=== PATIENT | male | born 1955 | race Hispanic/Latino ===

== ENCOUNTER 2017-11-30 00:08 | Emergency (ER) | payer OTHER ==
[2017-11-30 00:08] VITALS: BMI 33.0
[2017-11-30 00:59] VITALS: BP 158/88; PULSE 89; RESP 16; TEMP 98.2; O2SAT 98
[2017-11-30] MEDS ORDERED: Sodium Chloride 0.9% 1,000 ML IV STA (01:11)
[2017-11-30] MEDS ORDERED: Insulin Regular 100 units/ml SC STA (01:11)
[2017-11-30] MEDS ORDERED: Insulin Regular 100 units/ml ONE (02:03)
[2017-11-30 02:20] LABS: BASO % 0.2 % (0.0-2.0); EOS # 0.2 K/uL (0.0-0.7); EOS % 2.4 % (0.0-4.0); HEMOGLOBIN 13.3 g/dL (12.0-18.0); LYMPH # 1.8 K/uL (1.0-4.3); LYMPH % 23.3 % (20.0-40.0); MEAN CELL VOLUME 91.3 fl (80.0-94.0); MEAN CORPUSCULAR HEMOGLOBIN 30.5 pg (27.0-31.0); MEAN CORPUSCULAR HGB CONC 33.4 g/dL (33.0-37.0); MONO # 0.7 K/uL (0.0-0.8); MONO % 8.8 % (0.0-10.0); NEUT % 65.3 % (50.0-75.0); NRBC % 0.3 % (0.0-0.0); RBC 4.35 Mil/uL (4.40-5.90); RED CELL DISTRIBUTION WIDTH 14.6 % (11.5-14.5); WHITE BLOOD COUNT 7.6 K/uL (4.8-10.8)
--- NOTE | 2017-11-30 02:23 | ED PDOC ---
HPI: General Adult Time Seen by Provider: 11/30/17 00:55 Chief Complaint (Nursing): Lower Extremity Problem/Injury History Per: Patient Additional Complaint(s): Pt. states for the past 2 days he's had increased urinary frequency without dysuria. States he is currently homeless and reports while in the skilled nursing he was waiting to go to the bathroom which was occupied and while waiting for the bathroom he accidentally urinated himself. Pt. states he is a non-insulin diabetic but has not had his metformin in several months as he has been unable to f/u with a PMD. Denies abd pain, leg pain (contrary to triage note), fever, N /V/D, hx of DKA, SOB, chest pain, back pain. Past Medical History Reviewed: Historical Data, Nursing Documentation, Vital Signs Vital Signs: Last Vital Signs Temp 98.2 F 11/30/17 00:57 Pulse 89 11/30/17 00:57 Resp 16 11/30/17 00:57 BP 158/88 H 11/30/17 00:57 Pulse Ox 98 11/30/17 04:43 - Medical History PMH: Anxiety, Depression, Diabetes, Hypercholesterolemia, Rheumatoid Arthritis, Seizures Denies: HIV (unable to assess pt. intubated) - Family History Family History: States: No Known Family Hx - Home Medications Home Medications: Ambulatory Orders Medication Instructions Recorded Acetaminophen [Tylenol 325mg tab] 650 mg PO Q6 PRN tab 10/16/17 Acetaminophen [Tylenol 650 mg Supp] 650 mg [place] Q4 PRN sup 10/16/17 Divalproex [Depakote DR(*BID*)] 500 mg PO BID #60 tcp 10/16/17 GlipiZIDE SR [Glucotrol XL] 5 mg PO BRK #30 tab 10/16/17 Losartan [Cozaar] 50 mg PO DAILY #30 tab 10/16/17 Tamsulosin [Flomax] 0.4 mg PO DAILY #30 cap 10/16/17 Metformin HCl [Fortamet] 1,000 mg PO QAM #14 tab.er.24 10/19/17 MetFORMIN [glucoPHAGE] 1,000 mg PO DAILY #14 tab 11/30/17 - Allergies Allergies/Adverse Reactions: Allergies Allergy/AdvReac Type Severity Reaction Status Date / Time No Known Allergies Allergy Verified 10/05/17 06:34 Review of Systems ROS Statement: Except As Marked, All Systems Reviewed And Found Negative Genitourinary Male: Positive for: Frequency Physical Exam - Physical Exam Appears: Positive for: Well, Non-toxic, No Acute Distress Skin: Positive for: Normal Color, Warm. Negative for: Rash Eye Exam: Positive for: Normal appearance Neck: Positive for: Normal, Painless ROM Cardiovascular/Chest: Positive for: Regular Rate, Rhythm Respiratory: Positive for: Normal Breath Sounds. Negative for: Accessory Muscle Use, Respiratory Distress Gastrointestinal/Abdominal: Positive for: Normal Exam, Soft. Negative for: Tenderness Back: Positive for: Normal Inspection. Negative for: L CVA Tenderness, R CVA Tenderness Extremity: Positive for: Normal ROM. Negative for: Calf Tenderness (b/l) Neurologic/Psych: Positive for: Alert, Oriented. Negative for: Aphasia, Facial Droop - Laboratory Results Result Diagrams: 11/30/17 02:10 11/30/17 02:10 - ECG O2 Sat by Pulse Oximetry: 98 - Progress ED Course And Treament: Labs ordered. FSBS: 452 Insulin 6mg SC, IV NS bolus x 1 ordered. 0249 Repeat FSBS: 312 K: 5.7 - slightly hemolyzed as per lab 0441 FSBS: 244 UA showed no ketones Normal anion gap. On re-evaluation, pt. sleeping comfortably and easily arousable. No distress. Disposition - Clinical Impression Clinical Impression: Hyperglycemia - Patient ED Disposition Is Patient to be Admitted: No - Disposition Referrals: [facility] [Outside] Disposition: Routine/Home Disposition Time: 04:46 Condition: IMPROVED Additional Instructions: Follow up with [facility] for further evaluation. Return to ED if symptoms worsen. Prescriptions: MetFORMIN [glucoPHAGE] 1,000 mg PO DAILY #14 tab Instructions: Hyperglycemia, Adult (DC) Forms: [employer] (Estonian) Print Language: SAUDI ARABIAN
[2017-11-30 02:46] LABS: ALB/GLOB RATIO 0.9 (1.0-2.1); ALBUMIN 3.4 g/dL (3.5-5.0); ALT/SGPT 74 U/L (21-72); AST/SGOT 39 U/L (17-59); BLOOD UREA NITROGEN 26 mg/dl (9-20); CALCIUM 8.8 mg/dL (8.4-10.2); GFR AFRICAN-AMERICAN > 60; GFR NON-AFRICAN AMERICAN > 60
[2017-11-30 03:46] LABS: URINE BILIRUBIN NEGATIVE (NEGATIVE); URINE BLOOD SMALL (NEGATIVE); URINE CLARITY CLEAR (Clear); URINE COLOR STRAW (YELLOW); URINE GLUCOSE (UA) >=500 mg/dL (Normal); URINE LEUKOCYTE ESTERASE NEG Leu/uL (Negative); URINE PROTEIN 100 mg/dL (NEGATIVE); URINE UROBILINOGEN 0.2-1.0 mg/dL (0.2-1.0)
== END 2017-11-30 05:35 | disposition home or self-care (01) ==
LOC: H.ER 00:08
DX: E11.65 Type 2 diabetes mellitus with hyperglycemia (principal); E78.00 Pure hypercholesterolemia, unspecified; M06.9 Rheumatoid arthritis, unspecified; Z79.84 Long term (current) use of oral hypoglycemic drugs
CPT/HCPCS: 80053; 81003; 82948; 85025; 87086; 96372; 99284; J7040

== ENCOUNTER 2018-01-30 07:36 | Emergency (ER) | payer OTHER ==
[2018-01-30 07:41] VITALS: BMI 31.9
[2018-01-30 07:42] VITALS: RESP 17; O2SAT 97
--- NOTE | 2018-01-30 08:34 | ED PDOC ---
HPI: Male Pain Time Seen by Provider: 01/30/18 07:53 Chief Complaint (Nursing): Male Genitourinary Chief Complaint (Provider): Male Genitourinary History Per: Patient History/Exam Limitations: no limitations Onset/Duration Of Symptoms: Days (x 1 month) Current Symptoms Are (Timing): Still Present Associated Symptoms: Urinary Symptoms Additional Complaint(s): 62 year old male with a history of prostate cancer and diabetes presents to the ED via EMS with urinary and fecal incontinence for the last month. He admits falling 3 years ago on ice that caused a back injury but did not have any serious acute findings s/p fall. Patient has been between homeless shelters for the last 3 years. Offers no other medical complaints. PMD: Dr. Milka Mckeon Past Medical History Reviewed: Historical Data, Nursing Documentation, Vital Signs Vital Signs: Last Vital Signs Temp 98.1 F 01/30/18 07:41 Pulse 104 H 01/30/18 07:41 Resp 17 01/30/18 07:41 BP 147/80 01/30/18 07:41 Pulse Ox 97 01/30/18 07:41 - Medical History PMH: Anxiety, Depression, Diabetes, Hypercholesterolemia, Rheumatoid Arthritis, Seizures, Chronic Pain (back) Denies: HIV - Surgical History Surgical History: Appendectomy, Cholecystectomy - Family History Family History: States: Unknown Family Hx - Social History Current smoker - smoking cessation education provided: No Ex-Smoker (has not smoked in the last 12 months): No Drugs: Denies - Home Medications Home Medications: Ambulatory Orders Medication Instructions Recorded Acetaminophen [Tylenol 325mg tab] 650 mg PO Q6 PRN tab 10/16/17 Acetaminophen [Tylenol 650 mg Supp] 650 mg [place] Q4 PRN sup 10/16/17 Divalproex [Depakosindhu DR(*BID*)] 500 mg PO BID #60 tcp 10/16/17 GlipiZIDE SR [Glucotrol XL] 5 mg PO BRK #30 tab 10/16/17 Losartan [Cozaar] 50 mg PO DAILY #30 tab 10/16/17 Tamsulosin [Flomax] 0.4 mg PO DAILY #30 cap 10/16/17 Metformin HCl [Fortamet] 1,000 mg PO QAM #14 tab.er.24 10/19/17 MetFORMIN [glucoPHAGE] 1,000 mg PO DAILY #14 tab 11/30/17 MetFORMIN [glucoPHAGE] 1,000 mg PO DAILY #30 tab 01/30/18 - Allergies Allergies/Adverse Reactions: Allergies Allergy/AdvReac Type Severity Reaction Status Date / Time No Known Allergies Allergy Verified 01/30/18 07:52 Review of Systems ROS Statement: Except As Marked, All Systems Reviewed And Found Negative Genitourinary Male: Positive for: Incontinence (fecal and urinary) Physical Exam - Reviewed Nursing Documentation Reviewed: Yes Vital Signs Reviewed: Yes - Physical Exam Appears: Positive for: Non-toxic, No Acute Distress Head Exam: Positive for: ATRAUMATIC, NORMAL INSPECTION, NORMOCEPHALIC Skin: Positive for: Normal Color, Warm, DRY Eye Exam: Positive for: EOMI, Normal appearance, PERRL Neck: Positive for: Normal, Painless ROM Cardiovascular/Chest: Positive for: Regular Rate, Rhythm. Negative for: Murmur Respiratory: Positive for: Normal Breath Sounds. Negative for: Respiratory Distress Gastrointestinal/Abdominal: Positive for: Normal Exam, Soft. Negative for: Tenderness Extremity: Positive for: Normal ROM. Negative for: Deformity Neurologic/Psych: Positive for: Alert, Oriented (x 3). Negative for: Motor/ Sensory Deficits - Laboratory Results Urine dip results: Negative for: Leukocyte Esterase, Ketones - ECG O2 Sat by Pulse Oximetry: 97 (RA) Pulse Ox Interpretation: Normal Medical Decision Making Medical Decision Making: Time: 08:14 Initial Plan: --Urine dip --Accucheck Time: 08:32 --Glucose level of 302. Scribe Attestation: Documented by Calista Bradley, acting as a scribe for Tabitha Nunez MD Provider Scribe Attestation: All medical record entries made by the Scribe were at my direction and personally dictated by me. I have reviewed the chart and agree that the record accurately reflects my personal performance of the history, physical exam, medical decision making, and the department course for this patient. I have also personally directed, reviewed, and agree with the discharge instructions and disposition. Patient advised that he needs outpatient followup for his chronic complaints. Disposition - Clinical Impression Clinical Impression: Prostate cancer, Diabetes mellitus - Patient ED Disposition Is Patient to be Admitted: No Doctor Will See Patient In The: Office Counseled Patient/Family Regarding: Diagnosis, Need For Followup, Rx Given - Disposition Referrals: [facility] [Outside] [facility] [Outside] [facility] [Outside] Disposition: Routine/Home Disposition Time: 11:15 Condition: STABLE Prescriptions: MetFORMIN [glucoPHAGE] 1,000 mg PO DAILY #30 tab Instructions: Type 2 Diabetes, Prostate Cancer Forms: [facility] (East Timorese) - POA Present On Arrival: None
[2018-01-30 12:36] VITALS: BP 145/75; PULSE 90; TEMP 97.7
== END 2018-01-30 12:35 | disposition home or self-care (01) ==
LOC: H.ER 07:36
DX: C61 Malignant neoplasm of prostate (principal); E11.9 Type 2 diabetes mellitus without complications; Z79.84 Long term (current) use of oral hypoglycemic drugs; E78.00 Pure hypercholesterolemia, unspecified; F32.9 Major depressive disorder, single episode, unspecified; F41.9 Anxiety disorder, unspecified; G89.29 Other chronic pain; M06.9 Rheumatoid arthritis, unspecified; Z87.891 Personal history of nicotine dependence

== ENCOUNTER 2018-02-03 14:51 | Emergency (ER) | payer OTHER ==
[2018-02-03 14:51] VITALS: BMI 31.9
[2018-02-03 15:34] VITALS: RESP 16; TEMP 98.1
--- NOTE | 2018-02-03 16:10 | ED PDOC ---
Lower Extremity Pain/Injury Time Seen by Provider: 02/03/18 15:51 Chief Complaint (Nursing): Lower Extremity Problem/Injury History Per: Patient Onset/Duration Of Symptoms: Days (2) Current Symptoms Are (Timing): Still Present Severity: Moderate Pain Scale Rating Of: 2 Additional Complaint(s): Developed ulcer left ankle from wearing tight shoes x 2 days. No fever. Past Medical History Vital Signs: Last Vital Signs Temp 98.1 F 02/03/18 15:29 Pulse 84 02/03/18 15:29 Resp 16 02/03/18 15:29 BP 142/71 02/03/18 15:29 Pulse Ox 100 02/03/18 15:29 - Medical History PMH: Anxiety, Depression, Diabetes, Hypercholesterolemia, Malignancy (Prostate) , Rheumatoid Arthritis, Seizures, Chronic Pain (back) Denies: HIV - Surgical History Surgical History: Appendectomy, Cholecystectomy - Family History Family History: States: Unknown Family Hx - Home Medications Home Medications: Ambulatory Orders Medication Instructions Recorded Acetaminophen [Tylenol 325mg tab] 650 mg PO Q6 PRN tab 10/16/17 Acetaminophen [Tylenol 650 mg Supp] 650 mg [place] Q4 PRN sup 10/16/17 Divalproex [Depakote DR(*BID*)] 500 mg PO BID #60 tcp 10/16/17 GlipiZIDE SR [Glucotrol XL] 5 mg PO BRK #30 tab 10/16/17 Losartan [Cozaar] 50 mg PO DAILY #30 tab 10/16/17 Tamsulosin [Flomax] 0.4 mg PO DAILY #30 cap 10/16/17 Metformin HCl [Fortamet] 1,000 mg PO QAM #14 tab.er.24 10/19/17 MetFORMIN [glucoPHAGE] 1,000 mg PO DAILY #14 tab 11/30/17 MetFORMIN [glucoPHAGE] 1,000 mg PO DAILY #30 tab 01/30/18 Sulfamethoxazole/Trimethoprim 1 tab PO BID #20 tab 02/03/18 [Bactrim DS 800 mg-160 mg] traMADol [Ultram] 50 mg PO Q8 #10 tab 02/03/18 - Allergies Allergies/Adverse Reactions: Allergies Allergy/AdvReac Type Severity Reaction Status Date / Time No Known Allergies Allergy Verified 02/03/18 15:29 Review of Systems ROS Statement: Except As Marked, All Systems Reviewed And Found Negative Constitutional: Negative for: Fever Skin: Positive for: Other (Ulcer and erythema left medial maleolus) Physical Exam - Reviewed Nursing Documentation Reviewed: Yes Vital Signs Reviewed: Yes - Physical Exam Appears: Positive for: Non-toxic, No Acute Distress Head Exam: Positive for: ATRAUMATIC, NORMAL INSPECTION, NORMOCEPHALIC Skin: Positive for: Normal Color, Warm, DRY Eye Exam: Positive for: EOMI, Normal appearance, PERRL ENT: Positive for: Normal ENT Inspection Neck: Positive for: Normal, Painless ROM Cardiovascular/Chest: Positive for: Regular Rate, Rhythm Respiratory: Positive for: CNT, Normal Breath Sounds Gastrointestinal/Abdominal: Positive for: Normal Exam, Soft Back: Positive for: Normal Inspection Extremity: Positive for: Other (Left ankle medial maleolus, 2 cm ulcer with surrounding erythema ) Neurologic/Psych: Positive for: Alert, Oriented - Laboratory Results Result Diagrams: 02/03/18 16:51 02/03/18 16:51 - ECG O2 Sat by Pulse Oximetry: 100 Medical Decision Making Medical Decision Making: Discussed 24 hr obs with pt for IV antibiotics. WBC nl. Pt afebrile, able to tolearte PO meds. No evidence of osteo on xray. Pt prefers to go home on PO antibiotics and f/u with PMD. Pt instructed to return to ED immediately if he develops fever chills or increase in redness of wound Disposition - Clinical Impression Clinical Impression: Diabetic foot ulcer - Patient ED Disposition Is Patient to be Admitted: No Counseled Patient/Family Regarding: Studies Performed, Diagnosis, Need For Followup, Rx Given - Disposition Referrals: [facility] [Outside] Disposition: Routine/Home Disposition Time: 18:54 Condition: FAIR Prescriptions: Sulfamethoxazole/Trimethoprim [Bactrim DS 800 mg-160 mg] 1 tab PO BID #20 tab traMADol [Ultram] 50 mg PO Q8 #10 tab Instructions: Diabetic Foot Ulcer (DC) Forms: [employer] (Romanian)
[2018-02-03] MEDS ORDERED: Piperacillin/Tazobact 3.375 GM in Sodium Chloride 0.9% 100 ML IVPB STA (16:12)
[2018-02-03 16:57] LABS: BASO % 0.2 % (0.0-2.0); EOS # 0.2 K/uL (0.0-0.7); EOS % 2.7 % (0.0-4.0); HEMOGLOBIN 12.7 g/dL (12.0-18.0); LYMPH # 1.7 K/uL (1.0-4.3); LYMPH % 23.6 % (20.0-40.0); MEAN CELL VOLUME 88.9 fl (80.0-94.0); MEAN CORPUSCULAR HEMOGLOBIN 30.3 pg (27.0-31.0); MEAN PLATELET VOLUME 8.8 fl (7.2-11.7); MONO # 0.8 K/uL (0.0-0.8); MONO % 11.3 % (0.0-10.0); NEUT # 4.5 K/uL (1.8-7.0); NEUT % 62.2 % (50.0-75.0); RBC 4.19 Mil/uL (4.40-5.90); RED CELL DISTRIBUTION WIDTH 14.1 % (11.5-14.5); WHITE BLOOD COUNT 7.2 K/uL (4.8-10.8)
[2018-02-03] MEDS ORDERED: Piperacillin/Tazobact 3.375 gm Inj IVPB ONE (16:59)
[2018-02-03 17:05] LABS: ALBUMIN 3.2 g/dL (3.5-5.0); ALT/SGPT 34 U/L (21-72); AST/SGOT 32 U/L (17-59); BLOOD UREA NITROGEN 33 mg/dl (9-20); CALCIUM 8.4 mg/dL (8.4-10.2); GFR AFRICAN-AMERICAN > 60; GFR NON-AFRICAN AMERICAN > 60
--- NOTE | 2018-02-03 17:18 | CP.PCM.CON ---
History of Present Illness - History of Present Illness History of Present Illness: 62 y/o male with PMHx of DM type II and RA seen in ED for left medial ankle ulcer secondary to tight shoegear. States he has been wearing new walking diabetic shoes for a few days and today he noticed a new wound on the inside of the ankle. Denies noting any pus from the site. States it is somewhat painful to touch. 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 Admits to a history of foot ulcers several years ago. States he tries his best to keep his diabetes under control but that his sugars lately have been in the 200s. Admits to occasional numbness in the toes. Admits to chronic mild but constant lower extremity leg and foot pain, worsened by extensive walking. Denies any tingling or burning. Denies F/C/N/V/CP/SOB. PSH: cholecystectomy, appendectomy All: NKDA Soc: Resides at [facility]. Social EtOH; denies cigarette or illicit drug use Review of Systems - Review of Systems All systems: reviewed and no additional remarkable complaints except (per HPI) Past Patient History - Past Social History Smoking Status: Never Smoked - CARDIAC Hx Hypercholesterolemia: Yes - NEUROLOGICAL Hx Seizures: Yes - ENDOCRINE/METABOLIC Hx Endocrine Disorders: Yes Hx Diabetes Mellitus Type 2: Yes - HEMATOLOGICAL/ONCOLOGICAL Hx Human Immunodeficiency Virus (HIV): No - MUSCULOSKELETAL/RHEUMATOLOGICAL Hx Rheumatoid Arthritis: Yes - GENITOURINARY/GYNECOLOGICAL Hx Prostate Cancer: Yes - PSYCHIATRIC Hx Anxiety: Yes Hx Depression: Yes - SURGICAL HISTORY Hx Appendectomy: Yes Hx Cholecystectomy: Yes - ANESTHESIA Hx Anesthesia: Yes Meds Allergies/Adverse Reactions: Allergies Allergy/AdvReac Type Severity Reaction Status Date / Time No Known Allergies Allergy Verified 02/03/18 15:29 Physical Exam - Constitutional Appears: Well, Non-toxic, No Acute Distress - Extremities Exam Extremities exam: Negative for: calf tenderness Additional comments: Bilateral LE focused exam: VASC: DP/PT pulses are palpable 2/4 B/L. Cap refill time: < 3 seconds to all digits. Skin temperature warm to warm from proximal to distal on L, warm to cool on R. No pedal edema noted DERM: wound measuring approx. 0.5cm x 0.3cm x 0.1 cm at the proximal anterior aspect of the left medial malleolus with fibrous wound base. Sabine wound exhibits ecchymosis with bruising and erythema >2cm in margins. No probe to bone , no drainage, no tunneling, no probe to bone, no malodor NEURO: Epicritic and protective sensation mildly diminished ORTHO: mild tenderness on palpation of left medial malleolus - Neurological Exam Neurological exam: Alert, Oriented x3 - Psychiatric Exam Psychiatric exam: Normal Affect, Normal Mood Results - Vital Signs Recent Vital Signs: Last Vital Signs Temp 98.1 F 02/03/18 15:29 Pulse 84 02/03/18 15:29 Resp 16 02/03/18 15:29 BP 142/71 02/03/18 15:29 Pulse Ox 100 02/03/18 16:11 - Labs Result Diagrams: 02/03/18 16:51 02/03/18 16:51 Labs: Laboratory Results - last 24 hr 02/03/18 02/03/18 02/03/18 16:51 16:51 16:52 WBC 7.2 RBC 4.19 L Hgb 12.7 Hct 37.3 MCV 88.9 D MCH 30.3 MCHC 34.0 RDW 14.1 Plt Count 152 MPV 8.8 Neut % (Auto) 62.2 Lymph % (Auto) 23.6 [place] % (Auto) 11.3 H Eos % (Auto) 2.7 Baso % (Auto) 0.2 Neut # (Auto) 4.5 Lymph # (Auto) 1.7 [place] # (Auto) 0.8 Eos # (Auto) 0.2 Baso # (Auto) 0.0 Sodium 138 Potassium 5.4 H Chloride 107 Carbon Dioxide 21 L Anion Gap 15 BUN 33 H Creatinine 0.8 Est GFR ( Amer) > 60 Est GFR (Non-Af Amer) > 60 POC Glucose (mg/dL) 258 H Random Glucose 306 H Calcium 8.4 Total Bilirubin 0.7 AST 32 ALT 34 Alkaline Phosphatase 281 H Total Protein 6.5 Albumin 3.2 L Globulin 3.3 Albumin/Globulin Ratio 1.0 Assessment & Plan - Assessment and Plan (Free Text) Assessment: 62 y/o diabetic male with left medial malleolus ulceration secondary to pressure (shoegear) Plan: Pt seen and evaluated in ED Discussed with attending Dr. Au Afebrile, absent leukocytosis Wound cleaned with saline and dressed with bacitracin DSD L ankle x-rays reviewed Pt recommended to follow up with Dr. Newman within 1 week of discharge Thank you for allowing us to participate in this patient's care
--- NOTE | 2018-02-03 17:49 | RAD ---
PROCEDURE: Left Ankle Radiographs. HISTORY: r/o osteomyelitis COMPARISON: None FINDINGS: BONES: No acute fracture. Bony remodeling. JOINTS: Degenerative changes. SOFT TISSUES: Normal. OTHER FINDINGS: None. IMPRESSION: No acute fracture. Chronic appearing changes. No definite periosteal reaction. There is clinical concern for acute osteomyelitis, nuclear medicine three-phase bone scan or MRI can be obtained for further evaluation.
[2018-02-03] MEDS ORDERED: Sodium Chloride 0.9% 1,000 ML IV STA (18:12)
[2018-02-03 20:51] VITALS: BP 137/78; PULSE 82; O2SAT 97
== END 2018-02-03 20:51 | disposition home or self-care (01) ==
LOC: H.ER 14:51
DX: E11.621 Type 2 diabetes mellitus with foot ulcer (principal); E78.00 Pure hypercholesterolemia, unspecified; F32.9 Major depressive disorder, single episode, unspecified; F41.9 Anxiety disorder, unspecified; G89.29 Other chronic pain; Z79.84 Long term (current) use of oral hypoglycemic drugs; Z85.46 Personal history of malignant neoplasm of prostate; M06.9 Rheumatoid arthritis, unspecified; Z90.49 Acquired absence of other specified parts of digestive tract
CPT/HCPCS: 73610; 80053; 82948; 85025; 87040; 96374; 99284; J2543; J7030